=== PATIENT | female | born 1975 | race Hispanic/Latino ===

== ENCOUNTER 2017-07-31 | Emergency (ER) | payer BC, SELFPAY ==
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
== END 2017-07-31 21:26 | disposition home or self-care (01) ==
CPT/HCPCS: 99284

== ENCOUNTER 2022-10-16 00:17 | Emergency (ER) | payer BC, SELFPAY ==
[2022-10-16 01:26] LABS: Absolute Lymphocytes (CBC) 3.1 K/uL (0.7-4.9); Hematocrit 14.2 % (36.0-45.0); Lymphocytes % 35.8 % (15.3-44.8); MCV 56.5 fL (80-100); MPV 8.3 fL (7.6-11.3); RBC Red Blood Cell Count 2.52 M/uL (3.86-4.86)
[2022-10-16 01:40] LABS: Potassium 3.7 mEq/L (3.5-5.1); Thyroid Stimulating Hormone 1.69 uIU/mL (0.358-3.740)
[2022-10-16 01:50] LABS: Anisocytosis 2+; Blood Morphology Comment NOTED (NOT SEEN); Hypochromasia 2+; Ovalocytes 1+; Platelet Estimate INCR; Poikilocytosis 2+; Polychromasia 1+; Teardrop Cell 1+; White Blood Cell Scan OK (OK)
[2022-10-16 02:47] LABS: Transferrin 344 mg/dL (200-360)
[2022-10-16 02:49] LABS: Ferritin < 0.5 ng/mL (8-388); Iron < 10.0 ug/dL (50-170)
[2022-10-16] MEDS ORDERED: NA CHLORIDE 0.9% 500 ML ONE (04:53)
--- NOTE | 2022-10-16 07:36 | EDPHYS ---
Physician Documentation [facility] Name: Sara Walters Age: 46 yrs Sex: Female : 1975 Arrival Date: 10/16/2022 Time: 00:17 Bed 7 Private MD: ED Physician Sanket Singh HPI: 10/16 04:11 This 46 yrs old Female presents to ER via Ambulatory with complaints of snw Anemia, Vaginal Bleeding. 04:11 The patient presents with hx of significant vaginal bleeding, multiple blood snw transfusions in the past, Used to see Dr. Hannon but he retired. Lowest Hemoglobin 4mg/dl. Associated signs and symptoms: Pertinent positives: fatigue, generalized weakness, shortness of breath. The patient has experienced similar episodes in the past, multiple times. It is unknown whether or not the patient has recently seen a physician. LMP x 2 in September, 14 days and then 7 days.. 07:14 Patient care assumed from physician transportation assistant at 4 AM. Patient has a history of sp4 dysfunctional uterine bleeding and is seeing [facility] [employer] [employer] [facility]. Patient presents today with fatigue, generalized weakness, shortness of breath. 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 Last menstrual period was in September. . [employer]: 00:32 LMP 09/29/2022 ll3 Historical: - Allergies: 00:32 No Known Allergies; ll3 - Home Meds: 00:32 None [Active]; ll3 - PMHx: 00:32 Anemia; ll3 - PSHx: 00:32 section; ll3 - Immunization history:: Client reports receiving the 2nd dose of the Covid vaccine. - Social history:: Smoking status: Patient denies any tobacco usage or history of. ROS: 02:24 Constitutional: Negative for fever, chills, and weight loss, Eyes: Negative for injury, snw pain, redness, and discharge, ENT: Negative for injury, pain, and discharge, Neck: Negative for injury, pain, and swelling, Cardiovascular: Negative for chest pain, palpitations, and edema. 02:24 Abdomen/GI: Negative for abdominal pain, nausea, vomiting, diarrhea, and constipation, Back: Negative for injury and pain, : Negative for injury, bleeding, discharge, and swelling, MS/Extremity: Negative for injury and deformity, Skin: Negative for injury, rash, and discoloration. 02:24 Respiratory: Positive for shortness of breath. 02:24 Neuro: Positive for weakness, fatigue. Exam: 02:23 Constitutional: This is a well developed, well nourished patient who is awake, alert, snw and in no acute distress. Head/Face: Normocephalic, atraumatic. Eyes: Pupils equal round and reactive to light, extra-ocular motions intact. Lids and lashes normal. Conjunctiva and sclera are non-icteric and not injected. Cornea within normal limits. Periorbital areas with no swelling, redness, or edema. ENT: Nares patent. No nasal discharge, no septal abnormalities noted. Tympanic membranes are normal and external auditory canals are clear. Oropharynx with no redness, swelling, or masses, exudates, or evidence of obstruction, uvula midline. Mucous membranes moist. Neck: Trachea midline, no thyromegaly or masses palpated, and no cervical lymphadenopathy. Supple, full range of motion without nuchal rigidity, or vertebral point tenderness. No Meningismus. Chest/axilla: Normal chest wall appearance and motion. Nontender with no deformity. No lesions are appreciated. Cardiovascular: Regular rate and rhythm with a normal S1 and S2. No gallops, murmurs, or rubs. Normal PMI, no JVD. No pulse deficits. Respiratory: Lungs have equal breath sounds bilaterally, clear to auscultation and percussion. No rales, rhonchi or wheezes noted. No increased work of breathing, no retractions or nasal flaring. Abdomen/GI: Soft, non-tender, with normal bowel sounds. No distension or tympany. No guarding or rebound. No evidence of tenderness throughout. Back: No spinal tenderness. No costovertebral tenderness. Full range of motion. MS/ Extremity: Pulses equal, no cyanosis. Neurovascular intact. Full, normal range of motion. Neuro: Awake and alert, GCS 15, oriented to person, place, time, and situation. Cranial nerves II-XII grossly intact. Motor strength 5/5 in all extremities. Sensory grossly intact. Cerebellar exam normal. Normal gait. Psych: Awake, alert, with orientation to person, place and time. Behavior, mood, and affect are within normal limits. 02:23 Skin: Appearance: Color: pale. Vital Signs: 00:27 BP 144 / 72; Pulse 96; Resp 18; Temp 98.2(O); Pulse Ox 100% on R/A; Weight 58.97 kg ll3 (R); Height 4 ft. 9 in. (R); Pain 0/10; 02:15 BP 113 / 60; Pulse 86; Resp 18; Pulse Ox 100% on R/A; mb9 03:30 BP 93 / 54; Pulse 91; Resp 18; Pulse Ox 100% on R/A; ll3 05:00 BP 105 / 73; Pulse 74; Resp 16; Pulse Ox 100% on R/A; ll3 06:00 BP 107 / 72; Pulse 72; Resp 16; Pulse Ox 100% on R/A; ll3 08:00 BP 117 / 67; Pulse 73; Resp 16; Temp 98.6; Pulse Ox 100% ; bp 09:30 BP 124 / 74; Pulse 77; Resp 15; Pulse Ox 100% ; bp 10:49 BP 133 / 81; Pulse 74; Resp 16; Pulse Ox 100% ; bp 00:27 Body Mass Index 28.13 (58.97 kg, 144.78 cm) ll3 00:27 Pain Scale: Adult ll3 MDM: 02:06 Patient medically screened. snw 07:14 Differential diagnosis: dysfunctional uterine bleeding, dysmenorrhea, malignancy, sp4 menometrorrhagia. Data reviewed: nurses notes, lab test result(s), CBC, electrolytes, hepatic panel. Consideration of Admission/Observation Escalation of care including admission/observation considered. Transition of care: After a detail discussion of the patient's case, care is transferred to [facility]. 09:24 Management of patient was discussed with the following: Dr Crowley with [facility] at [facility]. Accepts pt for consult. Wants 2 units PRBC and Tranexamic Acid 1gm IV infused now. . 09:31 Management of patient was discussed with the following: Dr Miller, clerical aide at [facility], accepts pt for transfer. 10/16 00:44 Order name: CBC with Diff; Complete Time: 01:53 snw 10/16 00:44 Order name: Chem 7; Complete Time: 01:40 snw 10/16 00:44 Order name: TS snw 10/16 00:44 Order name: TSH; Complete Time: 01:40 snw 10/16 01:34 Order name: CBC Smear Scan; Complete Time: 01:53 EDMS 10/16 02:22 Order name: Ferritin; Complete Time: 02:54 snw 10/16 02:39 Order name: Transferrin Sat/Iron Binding; Complete Time: 02:54 EDMS 10/16 04:15 Order name: Bb Add On snw 10/16 04:22 Order name: Packed RBC Leukored EDMS 10/16 07:34 Order name: US Pelvis Complete; Complete Time: 08:41 ms3 10/16 07:50 Order name: Transvaginal Study Probe; Complete Time: 08:41 EDMS 10/16 00:44 Order name: SL; Complete Time: 01:07 snw 10/16 02:17 Order name: Consent for Blood Transfusion; Complete Time: 03:00 snw 10/16 02:17 Order name: IV Saline Lock; Complete Time: 03:00 snw Administered Medications: 10:11 Drug: Tranexamic Acid 1 grams Route: IV; Rate: calculated rate; Site: left antecubital; bp 10:50 Follow up: IV Status: Completed infusion; IV Intake: 100ml bp Disposition: 14:16 Co-signature as Attending Physician, Sanket Singh DO. ms3 Disposition Summary: 10/16/22 07:35 Transfer Ordered Transfer Location: Other Acute Care Facility ms3 Reason: Higher level of care ms3 Condition: Stable ms3 Problem: new ms3 Symptoms: are unchanged ms3 Accepting Physician: Dr Miller(10/16/22 10:51) bp Diagnosis - Abnormal uterine and vaginal bleeding, unspecified ms3 - Anemia, unspecified ms3 Discharge Instructions: - Discharge Summary Sheet snw - Abnormal Uterine Bleeding snw - Iron Deficiency Anemia, Adult snw - Anemia snw - Blood Transfusion, Adult snw - Iron-Rich Diet snw - Menorrhagia snw Forms: - Medication Reconciliation Form ms3 - SBAR form ms3 Signatures: Dispatcher [employer] Roseline Ragland FNP-C MOSS GATHERER-Ckb Yane Argueta FNP-C FNP-Csnw Yasemin Michael RN RN Raf Woodson RN RN bp Sims, Marcus, DO DO ms3 Dulce Garner RN RN ll3 Vaughn Aburto MD MD sp4 Corrections: (The following items were deleted from the chart) 09:32 07:35 Dr maggie lombardi 10:51 09:32 Dr Paul lombardi bp
--- NOTE | 2022-10-16 07:36 | ER ---
Nurse's Notes [facility] Name: Sara Walters Age: 46 yrs Sex: Female : 1975 Arrival Date: 10/16/2022 Time: 00:17 Bed 7 Private MD: Diagnosis: Abnormal uterine and vaginal bleeding, unspecified;Anemia, unspecified Presentation: 10/16 00:27 Chief complaint: Patient states: C/o fatigue, generalized weakness, SOB upon exertion, ll3 and H/A daily, states "I don't have a headache right now but I have been having them daily", states "I have had to have several blood transfusions in the past". Coronavirus screen: Vaccine status: Patient reports receiving the 2nd dose of the covid vaccine. At this time, the client does not indicate any symptoms associated with coronavirus-19. Ebola Screen: No symptoms or risks identified at this time. Initial Sepsis Screen: Does the patient meet any 2 criteria? No. Patient's initial sepsis screen is negative. Does the patient have a suspected source of infection? No. Patient's initial sepsis screen is negative. Risk Assessment: Do you want to hurt yourself or someone else? Patient reports no desire to harm self or others. Onset of symptoms was October 11, 2022. 00:27 Method Of Arrival: Ambulatory ll3 00:27 Acuity: YOLA 3 ll3 Triage Assessment: 00:32 General: Appears comfortable, Behavior is calm, cooperative. General: Reports fatigue ll3 for generalized weakness. Pain: Denies pain. Respiratory: Reports shortness of breath on exertion since friday cough that is Respiratory effort is even, unlabored, Respiratory pattern is regular, symmetrical. : Denies vaginal bleeding. Derm: Skin is pink, warm \\T\\ dry. 04:09 : Reports vaginal bleeding that is bright red, light flow. ll3 ART CONSULTANT: 00:32 LMP 09/29/2022 ll3 Historical: - Allergies: 00:32 No Known Allergies; ll3 - Home Meds: 00:32 None [Active]; ll3 - PMHx: 00:32 Anemia; ll3 - PSHx: 00:32 section; ll3 - Immunization history:: Client reports receiving the 2nd dose of the Covid vaccine. - Social history:: Smoking status: Patient denies any tobacco usage or history of. Screenin:[address] [facility] ED Fall Risk Assessment (Adult) History of falling in the last 3 months, mb9 including since admission No falls in past 3 months (0 pts) Confusion or Disorientation No (0 pts) Intoxicated or Sedated No (0 pts) Impaired Gait No (0 pts) Mobility Assist Device Used No (0 pt) Altered Elimination No (0 pt) Score/Fall Risk Level 0 - 2 = Low Risk Oriented to surroundings, Maintained a safe environment, Educated pt \\T\\ family on fall prevention, incl call for assistance when getting out of bed. Abuse screen: Denies threats or abuse. Nutritional screening: No deficits noted. Tuberculosis screening: No symptoms or risk factors identified. Assessment: 01:43 Reassessment: pt brought back to ER 7. mb9 02:13 General: Appears in no apparent distress. Behavior is calm, cooperative, appropriate mb9 for age. Neuro: Recinos Agitation-Sedation Scale (RASS): 0 - Alert and Calm Level of Consciousness is awake, alert, obeys commands, Oriented to person, place, time, situation, Appropriate for age Reports weakness. Respiratory: Airway is patent Respiratory effort is even, unlabored, Respiratory pattern is regular, symmetrical. : Denies vaginal bleeding. Derm: Skin is intact, Skin is dry, Skin is pale, Skin temperature is cool. Musculoskeletal: Range of motion: intact in all extremities. 04:09 Reassessment: No changes from previously documented assessment. Patient and/or family ll3 updated on plan of care and expected duration. Pain level reassessed. Patient is alert, oriented x 3, equal unlabored respirations, skin warm/dry/pink. 07:00 Reassessment: RECD REPORT FROM PAULY HINTON. 46YO HF P/W ANEMIA AND VAGINAL BLEEDING, H/O bp TRANSFUSIONS. 1ST UNIT PRBC COMPLETED. 08:00 Reassessment: 2ND UNIT PRBC RECD AND INFUSING. bp 09:30 Reassessment: Patient appears in no apparent distress at this time. Patient is alert, bp oriented x 3, equal unlabored respirations, skin warm/dry/pink. 10:49 Reassessment: PT KALA WITH EMS. bp Vital Signs: 00:27 BP 144 / 72; Pulse 96; Resp 18; Temp 98.2(O); Pulse Ox 100% on R/A; Weight 58.97 kg ll3 (R); Height 4 ft. 9 in. (R); Pain 0/10; 02:15 BP 113 / 60; Pulse 86; Resp 18; Pulse Ox 100% on R/A; mb9 03:30 BP 93 / 54; Pulse 91; Resp 18; Pulse Ox 100% on R/A; ll3 05:00 BP 105 / 73; Pulse 74; Resp 16; Pulse Ox 100% on R/A; ll3 06:00 BP 107 / 72; Pulse 72; Resp 16; Pulse Ox 100% on R/A; ll3 08:00 BP 117 / 67; Pulse 73; Resp 16; Temp 98.6; Pulse Ox 100% ; bp 09:30 BP 124 / 74; Pulse 77; Resp 15; Pulse Ox 100% ; bp 10:49 BP 133 / 81; Pulse 74; Resp 16; Pulse Ox 100% ; bp 00:27 Body Mass Index 28.13 (58.97 kg, 144.78 cm) ll3 00:27 Pain Scale: Adult ll3 ED Course: 00:19 Patient arrived in ED. im 00:32 Triage completed. ll3 00:32 Arm band placed on Patient placed in waiting room, Patient notified of wait time. ll3 00:41 Yane Argueta FNP-C is [facility]. snw 00:41 Vaughn Aburto MD is Attending Physician. snw 01:06 Inserted saline lock: 20 gauge in left antecubital area, using aseptic technique. Blood mc5 collected. 01:07 TSH Sent. mc5 01:07 TS Sent. mc5 01:07 Chem 7 Sent. mc5 01:07 CBC with Diff Sent. mc5 02:15 Thania Yeung, JAMAAL is Primary Nurse. mb9 02:15 Placed in gown. Bed in low position. Call light in reach. Side rails up X 1. Client mb9 placed on continuous cardiac and pulse oximetry monitoring. NIBP monitoring applied. caustic pump operator on. 02:16 No provider procedures requiring assistance completed. mb9 07:01 Primary Nurse role handed off by Thania Yeung, JAMAAL bp 07:01 Raf Woodson, JAMAAL is Primary Nurse. bp 07:33 Attending Physician role handed off by Vaughn Aburto MD ms3 07:33 Sanket Singh DO is Attending Physician. ms3 08:04 US Pelvis Complete In Process Unspecified. EDMS 08:04 Transvaginal Study Probe In Process Unspecified. EDMS 08:44 initiated a transfer with Moe Dusty from the [facility]. eb 09:[address] Crowley the [employer] operations staff specialist security for [facility] with Roseline Macias for eb patient transfer consultation. 09:[address] Miller the registered nurse cardiovascular icu operations staff specialist security for [facility] for patient eb transfer consultation with Roseline Macias. 09:41 administrative approval given by Moe Montano/ patient has been accepted to [facility] ICU 209/ Dr. Adilson Miller has accepted the patient in transfer/ report to be called to [phone]. 10:50 Patient transferred, IV remains in place. bp Administered Medications: 10:11 Drug: Tranexamic Acid 1 grams Route: IV; Rate: calculated rate; Site: left antecubital; bp 10:50 Follow up: IV Status: Completed infusion; IV Intake: 100ml bp Medication: 02:16 VIS not applicable for this client. mb9 Intake: 10:50 IV: 100ml; Total: 100ml. bp Outcome: 07:35 ER care complete, transfer ordered by MD. ms3 10:50 Transferred by ground EMS to [facility]. bp 10:50 Condition: stable 10:50 Instructed on the need for transfer. 10:51 Patient left the ED. bp Signatures: Dispatcher [employer] EDMS Yane Argueta, LOAN ASSOCIATE-C LOAN ASSOCIATE-Csnw Raf Woodson, RN RN bp Linda Starks Sanket Singh DO DO ms3 Dulce Garner RN RN ll3 Thania Yeung, RN RN mb9 Li Araiza [facility]
--- NOTE | 2022-10-16 08:38 | RAD REPORT ---
EXAM DESCRIPTION: US - Pelvis Complete - 10/16/2022 8:03 am CLINICAL HISTORY: VAGINAL BLEEDING COMPARISON: TRANSVAGINAL STUDY PROBE dated 12/26/2008 TECHNIQUE: Sonographic grayscale and color flow images of the pelvis were obtained through transab dominal and transvaginal approaches. FINDINGS: The uterus is normal in size, and shape. The uterus measures 11.2 centimeter in length. Di ffuse heterogeneity throughout the myometrium, may indicate small underlying fibroids. A scratched mi ldly expansile peripheral anterior wall fibroid on the left, measures 2.5 x 2.1 centimeter. A dominan t right posterior wall fibroid measures up to 3.6 cm in greatest dimension. Few nabothian cysts. The endometrial stripe is heterogeneous with some echogenic content along the lumen, overall measurin g up to 1.7 centimeter in thickness. No focal endometrial lesion. No hypervascular lesions. Both ovaries are normal in size, shape and echotexture. The right ovary measures 2.2 x 1.7 x 1.5 darci timeter. The left ovary measures 4.0 x 2.1 x 2.4 centimeter. Few small follicles on the left, and di fficult evaluation of the right ovary given deep/posterior location. No suspicious adnexal masses. Normal Doppler blood flow was demonstrated to both ovaries. No significant pelvic ascites. IMPRESSION: Heterogeneity including some echogenic material within the endometrial cavity, and overa ll mild prominence of the endometrial stripe. Findings could relate to debris or clot material within the endometrial cavity. No suspicious focal abnormalities. Multiple uterine fibroids, as above.
--- NOTE | 2022-10-16 08:39 | RAD REPORT ---
EXAM DESCRIPTION: US - Transvaginal Study Probe - 10/16/2022 8:03 am CLINICAL HISTORY: Vaginal bleeding COMPARISON: Pelvis Complete dated 10/16/2022 TECHNIQUE: Sonographic grayscale and color flow images of the pelvis were obtained through transabd ominal and transvaginal approaches. FINDINGS: The uterus is normal in size, and shape. The uterus measures 11.2 centimeter in length. Di ffuse heterogeneity throughout the myometrium, may indicate small underlying fibroids. A mildly expan sile peripheral anterior wall fibroid on the left, measures 2.5 x 2.1 centimeter. A dominant right po sterior wall fibroid measures up to 3.6 cm in greatest dimension. Few nabothian cysts. The endometrial stripe is heterogeneous with some echogenic content along the lumen, overall measurin g up to 1.7 centimeter in thickness. No focal endometrial lesion. No hypervascular lesions. Both ovaries are normal in size, shape and echotexture. The right ovary measures 2.2 x 1.7 x 1.5 darci timeter. The left ovary measures 4.0 x 2.1 x 2.4 centimeter. Few small follicles on the left, and di fficult evaluation of the right ovary given deep/posterior location. No suspicious adnexal masses. Normal Doppler blood flow was demonstrated to both ovaries. No significant pelvic ascites. IMPRESSION: Heterogeneity including some echogenic material within the endometrial cavity, and overa ll mild prominence of the endometrial stripe. Findings could relate to debris or clot material within the endometrial cavity. No suspicious focal abnormalities. Multiple uterine fibroids, as above.
[2022-10-16] MEDS ORDERED: TRANEXAMIC ACID 1,000 MG/10 ML VIAL IV ONE (10:10)
[2022-10-16] MEDS ORDERED: NA CHLORIDE 0.9% 100 ML ONE (10:11)
[2022-10-16 11:14] VITALS: O2SAT 100
[2022-10-16 11:24] VITALS: TEMP 98.6
[2022-10-16 11:27] VITALS: BP 133/81
== END 2022-10-16 10:51 ==
LOC: ER 00:17
PROC: 30233N1 Transfusion of Nonautologous Red Blood Cells into Peripheral Vein, Percutaneous Approach (ICD-10-PCS; principal; 2022-10-16)
DX: D64.9 Anemia, unspecified (principal)
CPT/HCPCS: 96365; 85025; 80048; 36415; 86900; 86850; 86901; 86920 ×3; 84443; 82728; 83540; 84466; 76856; 76830; 99285; 36430; P9016 ×2; J7050